=== PATIENT | female | born 2000 ===

== ENCOUNTER 2022-02-28 08:51 | Emergency (ER) | payer SELFPAY ==
[2022-02-28 10:01] VITALS: BP 114/88
[2022-02-28 10:53] LABS: Basophils % (Auto) 0.3 % (0.0-1.8); Eosinophils # (Auto) 0.2 K/mm3 (0.0-0.4); Eosinophils % (Auto) 2.8 % (0.0-4.3); Hematocrit 36.4 % (30.3-42.9); Hemoglobin 12.3 gm/dl (10.1-14.3); Lymphocytes # (Auto) 1.8 K/mm3 (1.2-5.4); Mean Corpuscular HGB Conc 34 % (30-34); Mean Corpuscular Volume 96 fl (79-97); Monocytes # (Auto) 0.8 K/mm3 (0.0-0.8); Monocytes % (Auto) 11.8 % (0.0-7.3); Platelet Count 406 K/mm3 (140-440); Red Cell Distribution Width 12.3 % (13.2-15.2)
[2022-02-28 11:09] LABS: Blood Urea Nitrogen 9 mg/dL (7-17); Calcium 9.4 mg/dL (8.4-10.2); Hemolysis Index 9
[2022-02-28 11:16] LABS: BUN/Creatinine Ratio 15
== END 2022-03-01 06:10 | disposition left against medical advice (07) ==
LOC: ED 08:51
DX: R10.9 Unspecified abdominal pain (principal); Z53.21 Procedure and treatment not carried out due to patient leaving prior to being seen by health care provider
CPT/HCPCS: 36415; 80048; 83690; 84703; 85025